=== PATIENT | female | born 1995 | race Caucasian/White ===

== ENCOUNTER 2019-10-23 01:44 | Emergency (ER) | payer BC ==
--- NOTE | 2019-10-23 02:41 | EDM.PDOC ---
ED HPI GENERAL MEDICAL PROBLEM - General Chief Complaint: DIRECTOR PUBLIC Problem Stated Complaint: 10 WKS AND BLEEDING & CRAMPING Time Seen by Provider: 10/23/19 02:10 Source of Information: Reports: Patient, Family (Mother) History Limitations: Reports: No Limitations - History of Present Illness INITIAL COMMENTS - FREE TEXT/NARRATIVE: Mrs. Renae is a very pleasant 24-year-old woman with no chronic medical problems, who now presents the ED stating that she is approximately 10 weeks with her first , LMP 08/13/2019. She states that she developed lower abdominal cramps 2 days ago, 10/21/2019, then developed vaginal bleeding yesterday afternoon, 10/22/2019. She states that she is soaking through 1 pad about every 2 hours. No urinary symptoms. Here in the ED, the patient is found to be slightly tachycardic at 101 bpm, otherwise, she is hemodynamically stable, afebrile, saturating 100% on room air. Other than the lower abdominal cramps and vaginal bleeding, the patient denies recent fever, chills, sore throat, ear pain, nasal or sinus congestion, cough, dyspnea, chest pain, palpitations, nausea, vomiting, constipation, diarrhea, abdominal pain, urinary symptoms, recent weight gain or weight loss, recent bloody bowel movements or black bowel movements, recent joint aches, headaches, or rashes. The patient has not yet received any obstetric care during this , however, she is taking an [id number] vitamin. She has an appointment to see Dr. Sabillon this coming 10/28/2019. The patient does not have a PCP. She has received her previous gynecologic care from June Barry. Lower Abdominal Pain Score (Numeric/FACES): 7 - Related Data Allergies Allergy/AdvReac Type Severity Reaction Status Date / Time Cephalosporins Allergy Severe Anaphylactic Verified 10/23/19 02:03 Shock Home Meds: Home Meds . [No Known Home Meds] 10/23/19 [History] Past Medical History HEENT History: Reports: Impaired Vision : 1 Para: 0 Musculoskeletal History: Reports: Fracture (left wrist) - Past Surgical History HEENT Surgical History: Reports: Oral Surgery (wisdom teeth extraction) Musculoskeletal Surgical History: Reports: ORIF (left wrist) Dermatological Surgical History: Reports: Other (See Below) (Left islam cyst excised as an infant) Social & Family History - Tobacco Use Smoking Status *Q: Never Smoker - Caffeine Use Caffeine Use: Reports: Tea - Alcohol Use Alcohol Use History: Yes Alcohol Use Frequency: Socially (not during this ) - Recreational Drug Use Recreational Drug Use: No - Living Situation & Occupation Living situation: Reports: , with Spouse 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 ED EXAM - Physical Exam Exam: See Below Exam Limited By: No Limitations General Appearance: Alert, WD/WN, No Apparent Distress Eye Exam: Bilateral Eye: EOMI, Normal Inspection Ears: Normal External Exam, Hearing Grossly Normal Nose: Normal Inspection Throat/Mouth: Normal Inspection, Normal Lips, Normal Voice, No Airway Compromise Head: Atraumatic, Normocephalic Neck: Normal Inspection, Full Range of Motion Respiratory/Chest: No Respiratory Distress, Lungs Clear, Normal Breath Sounds, No Accessory Muscle Use Cardiovascular: Normal Peripheral Pulses, Regular Rate, Rhythm, No Edema, No Gallop, No JVD, No Murmur, No Rub GI/Abdominal Exam: Normal Bowel Sounds, Soft, Non-Tender (including suprapubically), No Organomegaly, No Distention, No Abnormal Bruit, No Mass Rectal Exam: Deferred (Female) Exam: Other (Large amount of blood and clots within the vagina. While clearing, a small sac-like piece of tissue was recovered. Nulliparous cervical os closed with blood clot emanating.) Back Exam: Normal Inspection, Full Range of Motion, NT Extremities: Normal Inspection, Normal Range of Motion, No Pedal Edema, Normal Capillary Refill Neurological: Alert, Oriented, Normal Cognition, No Motor/Sensory Deficits Psychiatric: Normal Affect Skin Exam: Warm, Dry, Intact, Normal Color, No Rash Course - Vital Signs Last Recorded V/S: Last Vital Signs Temp 37.4 C 10/23/19 01:59 Pulse 101 H 10/23/19 01:59 Resp 18 10/23/19 01:59 BP 127/74 10/23/19 01:59 Pulse Ox 100 10/23/19 01:59 Orthostatic Blood Pressure [ 106/65 Standing] Orthostatic Blood Pressure [ 108/65 Supine] - Orders/Labs/Meds Orders: Active Orders hr Category Date Time Status Orthostatic Vital Signs [RC] STAT Care 10/23/19 02:51 Active Orthostatic Vital Signs [RC] STAT Care 10/23/19 05:18 Active OB Transvaginal [US] Stat Exams 10/23/19 02:28 Taken PATIENT RETYPE [BBK] Routine Lab 10/23/19 03:36 Ordered Labs: Laboratory Tests 10/23/19 10/23/19 10/23/19 Range/Units 03:00 03:00 03:00 WBC 12.38 H (3.98-10.04) K/mm3 RBC 4.51 (3.98-5.22) M/mm3 Hgb 14.2 (11.2-15.7) gm/dl Hct 41.6 (34.1-44.9) % MCV 92.2 (79.4-94.8) fl MCH 31.5 (25.6-32.2) pg MCHC 34.1 (32.2-35.5) g/dl RDW Std Deviation 39.7 (36.4-46.3) fL Plt Count 207 (182-369) K/mm3 MPV 10.4 (9.4-12.3) fl Neut % (Auto) 81.9 H (34.0-71.1) % Lymph % (Auto) 10.6 L (19.3-51.7) % Hays % (Auto) 6.9 (4.7-12.5) % Eos % (Auto) 0.2 L (0.7-5.8) Baso % (Auto) 0.2 (0.1-1.2) % Neut # (Auto) 10.15 H (1.56-6.13) K/mm3 Lymph # (Auto) 1.31 (1.18-3.74) K/mm3 Hays # (Auto) 0.85 H (0.24-0.36) K/mm3 Eos # (Auto) 0.02 L (0.04-0.36) K/mm3 Baso # (Auto) 0.02 (0.01-0.08) K/mm3 Manual Slide Review Abnormal smear HCG, Quant 92480.0 mIU/mL Blood Type O POSITIVE Meds: Medications Discontinued Medications Generic Name Dose Route Start Last Admin Trade Name Freq PRN Reason Stop Dose Admin Lactated Ringer's 1,000 mls @ 999 mls/hr 10/23/19 02:51 10/23/19 03:36 Ringers, Lactated IV 10/23/19 03:51 999 mls/hr .BOLUS ONE Administration Lactated Ringer's 1,000 mls @ 999 mls/hr 10/23/19 04:42 10/23/19 04:57 Ringers, Lactated IV 10/23/19 05:42 999 mls/hr .BOLUS ONE Administration Misoprostol 1,000 mcg 10/23/19 04:36 10/23/19 04:47 Cytotec PO 10/23/19 04:37 Not Given ONETIME STA Misoprostol 1,000 mcg 10/23/19 04:42 10/23/19 04:57 Cytotec PO 10/23/19 04:43 1,000 mcg ONETIME STA Administration - Re-Assessments/Exams Free Text/Narrative Re-Assessment/Exam: 10/23/19 02:30 As above, the patient is 10 weeks 1 day by dates, now with 2 days of lower abdominal cramps and vaginal bleeding since yesterday afternoon. I have ordered a work-up including a CBC, quantitative hCG, ABO/Rh, and a transvaginal ultrasound. 10/23/19 02:47 On pelvic examination, I recovered a large amount of blood and clots from the vagina, along with a small sac-like piece of tissue. The patient's nulliparous cervical os is closed, however, blood clot was seen emanating from the os. 10/23/19 02:51 The patient is orthostatic. I have therefore ordered a 1 L bolus of LR. 10/23/19 03:35 Notified by the industrial waste treatment technician that she did not see a gestational sac. 10/23/19 04:05 Transvaginal ultrasound is read by Chito as: No intrauterine identified. Please correlate with the patient's clinical history, as if the patient has a positive test, ectopic cannot be excluded. Blood products in the endometrial cavity of the uterus. Ovaries are normal bilaterally. 10/23/19 04:39 Test results discussed with the patient and her mother. The patient states that her vaginal bleeding has decreased somewhat, but is still relatively vigorous. Case discussed with Dr. Santamaria at 04:33. Since she has passed the gestational sac, and her cervix is closed, her bleeding will likely diminish soon, however, he recommended that I give the patient 1000 micrograms of Cytotec orally. If she is still having significant bleeding closer to 7 AM, I will call him back. 10/23/19 04:41 The liter of LR has finished infusing. Repeat orthostatics are still positive. I will order a second liter of IV fluid. 10/23/19 04:[address] Santamaria discussed with the patient and her mother. The patient stated that she just returned from the bathroom, and that her bleeding is already noticeably much improved. She is about to receive the second liter of IV fluid. We will recheck orthostatics once it has finished infusing. 10/23/19 06:04 Repeat orthostatics are negative, and the patient states that she is barely bleeding at all now. I will discharge her home. Departure - Departure Time of Disposition: 06:04 Disposition: Home, Self-Care 01 Condition: Good Clinical Impression: Spontaneous - Discharge Information *PRESCRIPTION DRUG MONITORING PROGRAM REVIEWED*: Not Applicable *COPY OF PRESCRIPTION DRUG MONITORING REPORT IN PATIENT LIDIA: Not Applicable Referrals: June Barry NP [Primary Care Provider] - Dante Sabillon MD [Physician] - Forms: ED Department Discharge Additional Instructions: You were seen in the emergency room nominal cramps since Monday, and vaginal bleeding since Monday afternoon. Work-up in the ER included positional blood pressure checks, blood work, and a transvaginal ultrasound. Your heart rate radhames excessively between lying and standing, indicating intravascular depletion. You were given 2 L of IV fluid, and your blood pressure and heart rate stabilized. The ultrasound showed no intrauterine , and on pelvic examination, tissue consistent with a gestational sac was recovered. Based on your history, physical exam, and ER tests, it appears that you have suffered a miscarriage. Your case was discussed with the DIRECTOR PUBLIC Dr. Javad Santamaria, who recommended that we give you Cytotec to help stop your vaginal bleeding. We recommend that you follow-up with June Barry NP, at the next available appointment. If any other problems, please do not hesitate to return to the ER. Sepsis Event Note (ED) - Evaluation Sepsis Screening Result: No Definite Risk - Focused Exam Vital Signs: Vital Signs Temp Pulse Resp BP Pulse Ox 10/23/19 01:59 37.4 C 101 H 18 127/74 100 - My Orders Last 24 Hours: My Active Orders 10/23/19 02:28 OB Transvaginal [US] Stat 10/23/19 02:51 Orthostatic Vital Signs [RC] STAT 10/23/19 03:36 PATIENT RETYPE [BBK] Routine 10/23/19 05:18 Orthostatic Vital Signs [RC] STAT - Assessment/Plan Last 24 Hours: My Active Orders 10/23/19 02:28 OB Transvaginal [US] Stat 10/23/19 02:51 Orthostatic Vital Signs [RC] STAT 10/23/19 03:36 PATIENT RETYPE [BBK] Routine 10/23/19 05:18 Orthostatic Vital Signs [RC] STAT
[2019-10-23] MEDS ORDERED: Lactated Ringers 1,000 ML IV ONE ×2 (02:51→04:42)
[2019-10-23] MEDS ORDERED: Misoprostol 100 MCG Tab PO STA (04:36)
[2019-10-23] MEDS ORDERED: Misoprostol 200 MCG Tab PO STA (04:42)
--- NOTE | 2019-10-23 06:19 | US ---
First trimester obstetrical ultrasound: Multiple real-time images were obtained transvaginally. Comparison: No previous study. No intrauterine gestational sac is seen. Echogenic material is seen within the endometrial cavity most likely representing blood clot. Small amount of acute blood is also noted. Ovaries appear within normal limits. No discrete adnexal abnormalities are seen. Impression: 1. Probable blood clot within the endometrial cavity as well as a small amount of acute blood. No intrauterine gestational sac is seen. 2. No adnexal abnormalities or free fluid is seen. Note: If patient has positive test, findings can represent change from ongoing miscarriage or less likely nonvisualized ectopic . Diagnostic code #3 Agree with preliminary report issued by [facility] ([facility] preliminary report dictated on 10/23/19, 5:03 AM Central Daylight Time) Study was dictated in MDT
== END 2019-10-23 06:15 | disposition home or self-care (01) ==
LOC: JD.ED 01:44
DX: O03.9 Complete or unspecified spontaneous abortion without complication (principal); Z88.1 Allergy status to other antibiotic agents
CPT/HCPCS: 36415; 76817; 84702; 85025; 86900; 86901; 96360; 96361; 99284; A9270; J7120

== ENCOUNTER 2021-07-20 09:23 | Inpatient (IN) | payer BC ==
[2021-07-20] MEDS ORDERED: Sodium Chloride 0.9% 10 ML Syringe FLUSH PRN (10:00)
[2021-07-20] MEDS ORDERED: Oxytocin/Lactated Ringers 10 UNIT/1,000 ML BAG IV SCH ×2 (10:00)
[2021-07-20] MEDS ORDERED: Nalbuphine 10 MG/1 ML Vial IVPUSH PRN (10:00)
[2021-07-20] MEDS ORDERED: Ondansetron 4 MG/2 ML SDV IVPUSH PRN (10:00)
[2021-07-20] MEDS ORDERED: Lidocaine 1% 50 ML MDV INJECT ONE (10:00)
[2021-07-20] MEDS: Clindamycin Phosphate in D5W 900 MG in Premix Bag 1 BAG IV SCH ×4 (10:29→18:28)
[2021-07-20] MEDS: Lactated Ringers 1,000 ML IV SCH ×3 (10:29→16:51)
[2021-07-20] MEDS ORDERED: fentaNYL 100 MCG/2 ML SDV EPIDUR PRN (16:05)
[2021-07-20] MEDS ORDERED: ePHEDrine 50 MG/ML SDV IVPUSH PRN (16:05)
[2021-07-20] MEDS ORDERED: diphenhydrAMINE 50 MG/ML SDV IVPUSH PRN (16:05)
[2021-07-20] MEDS: Bupivacaine/fentaNYL/NS 100 ML Bag EPIDUR PRN (16:20)
[2021-07-20] MEDS ORDERED: Sodium Chloride 0.9% 10 ML Syringe FLUSH SCH (21:00)
[2021-07-21] MEDS ORDERED: Bupivacaine 0.25% 10 ML SDV ONE
[2021-07-21] MEDS: Bupivacaine/fentaNYL/NS 100 ML Bag EPIDUR PRN (00:38)
[2021-07-21] MEDS ORDERED: Acetaminophen 325 MG Tab PO PRN (03:16)
[2021-07-21] MEDS ORDERED: Witch Hazel Medicated Pads 40/Jar TOP PRN (03:16)
[2021-07-21] MEDS ORDERED: Benzocaine/Menthol 20%-0.5% Spray 78 GM Cannister TOP PRN (03:16)
[2021-07-21] MEDS: Ibuprofen 600 MG Tab PO PRN ×3 (03:51→20:38)
[2021-07-21] MEDS: Docusate Sodium 100 MG Cap PO PRN ×2 (03:51→20:40)
[2021-07-22] MEDS: Clindamycin Phosphate in D5W 900 MG in Premix Bag 1 BAG IV SCH ×2 (01:58)
[2021-07-22] MEDS: Docusate Sodium 100 MG Cap PO PRN (08:10)
[2021-07-22] MEDS: Ibuprofen 600 MG Tab PO PRN (08:10)
== END 2021-07-22 17:29 | disposition home or self-care (01) | DRG 560 ==
LOC: JD.OBCHECK 09:23 → JD.OB 09:27 → JD.OBCHECK 10:00 → JD.OB 16:19 → OBSVTOIN 07-21 02:12 → JD.OB 07-21 02:13
PROVIDERS: ADMIT Obstetrics & Gynecology; ATTEND Obstetrics & Gynecology
PROC: 10E0XZZ Delivery of Products of Conception, External Approach (ICD-10-PCS; principal; 2021-07-21)
PROC: 10907ZC Drainage of Amniotic Fluid, Therapeutic from Products of Conception, Via Natural or Artificial Opening (ICD-10-PCS; 2021-07-21)
PROC: 0KQM0ZZ Repair Perineum Muscle, Open Approach (ICD-10-PCS; 2021-07-21)
PROC: 3E0R3BZ Introduction of Anesthetic Agent into Spinal Canal, Percutaneous Approach (ICD-10-PCS; 2021-07-21)
DX: O48.0 Post-term pregnancy (principal); Z3A.40 40 weeks gestation of pregnancy; Z37.0 Single live birth; O77.0 Labor and delivery complicated by meconium in amniotic fluid; O70.1 Second degree perineal laceration during delivery; Z88.1 Allergy status to other antibiotic agents; O99.824 Streptococcus B carrier state complicating childbirth; Z20.822 Contact with and (suspected) exposure to COVID-19
CPT/HCPCS: 01967; 36415; 51701; 51702; 51798; 59025; 59409; 85025; 86592; 86850; 86900; 86901; A9270-GY; J2590; J3010; J3490; J7120; U0002

== ENCOUNTER 2024-06-21 06:41 | Inpatient (IN) | payer BC ==
[~2024-06-21 06:41] MED LIST: Bupivacaine 0.25% 10 ML SDV ONE
[2024-06-21] MEDS ORDERED: Calcium Carbonate 500 MG Tab.Chew PO PRN (07:16)
[2024-06-21] MEDS ORDERED: Ondansetron 4 MG/2 ML SDV IVPUSH PRN (07:16)
[2024-06-21] MEDS ORDERED: Sodium Chloride 0.9% 10 ML Syringe FLUSH PRN (07:16)
[2024-06-21] MEDS ORDERED: Lidocaine 1% 50 ML MDV INJECT PRN (07:16)
[2024-06-21] MEDS ORDERED: Nalbuphine 10 MG/1 ML Vial IVPUSH PRN (07:16)
[2024-06-21] MEDS ORDERED: Oxytocin/0.9 % Sodium Chloride 30 UNIT/500 ML BAG IV SCH (07:30)
[2024-06-21 07:46] LABS: BASOPHILS PERCENT AUTO 0.2 % (0.0-1.0); EOSINOPHILS PERCENT AUTO 0.1 % (0.0-6.0); HEMATOCRIT 37.6 % (37.0-47.0); HEMOGLOBIN 12.9 gm/dl (12.0-16.0); IMMATURE GRAN ABSOLUTE AUTO 0.03 K/mm3 (0.00-0.05); IMMATURE GRAN PERCENT AUTO 0.3 % (0.0-0.4); LYMPHOCYTES ABSOLUTE AUTO 1.7 K/mm3 (1.0-4.8); LYMPHOCYTES PERCENT AUTO 15.8 % (24.0-44.0); MEAN CORPUSCULAR HEMOGLOBIN 31.9 pg (28.0-32.0); MEAN CORPUSCULAR HGB CONC 34.3 g/dl (32.0-36.0); MEAN CORPUSCULAR VOLUME 93.1 fl (83.0-99.0); MEAN PLATELET VOLUME 10.6 fl (9.4-12.3); MONOCYTES ABSOLUTE AUTO 0.6 K/mm3 (0.0-0.8); MONOCYTES PERCENT AUTO 5.4 % (0.0-8.0); NEUTROPHILS ABSOLUTE AUTO 8.3 K/mm3 (1.8-7.7); NEUTROPHILS PERCENT AUTO 78.2 % (41.0-71.0); PLATELET COUNT,PLT 157 K/mm3 (150-400); RED BLOOD CELL COUNT 4.04 M/mm3 (4.10-5.30); WHITE BLOOD CELL COUNT,WBC 10.65 K/mm3 (3.9-11.3)
[2024-06-21] MEDS: Lactated Ringers 1,000 ML IV SCH (10:08)
[2024-06-21] MEDS: Oxytocin/0.9 % Sodium Chloride 30 UNIT/500 ML BAG IV SCH (10:11)
[2024-06-21] MEDS ORDERED: ePHEDrine 50 MG/ML SDV IVPUSH PRN (12:06)
[2024-06-21] MEDS ORDERED: diphenhydrAMINE 50 MG/ML SDV IVPUSH PRN (12:06)
[2024-06-21] MEDS: fentaNYL 100 MCG/2 ML SDV EPIDUR PRN (12:11)
[2024-06-21] MEDS: Bupivacaine/fentaNYL/NS 100 ML Bag EPIDUR PRN (12:12)
[2024-06-21] MEDS: Benzocaine/Menthol 20%-0.5% Spray 78 GM Cannister TOP PRN (15:31)
[2024-06-21] MEDS: Witch Hazel Medicated Pads 40/Jar TOP PRN (15:31)
[2024-06-21] MEDS: Docusate Sodium 100 MG Cap PO PRN (16:06)
[2024-06-21] MEDS: Acetaminophen 325 MG Tab PO PRN (16:07)
[2024-06-21] MEDS: Ibuprofen 600 MG Tab PO SCH (16:07)
[2024-06-21] MEDS: Sodium Chloride 0.9% 10 ML Syringe FLUSH SCH (19:52)
== END 2024-06-22 17:35 | disposition home or self-care (01) | DRG 560 ==
LOC: JD.OBCHECK 06:41 → JD.OB 06:41 → INTOOBSV 07:16 → JD.OB 07:16 → JD.OBCHECK 07:16 → OBSVTOIN 14:06 → JD.OB 14:07
PROVIDERS: ADMIT Family Medicine; ATTEND Family Medicine
PROC: 10E0XZZ Delivery of Products of Conception, External Approach (ICD-10-PCS; principal; 2024-06-21)
PROC: 0KQM0ZZ Repair Perineum Muscle, Open Approach (ICD-10-PCS; principal; 2024-06-21)
PROC: 10907ZC Drainage of Amniotic Fluid, Therapeutic from Products of Conception, Via Natural or Artificial Opening (ICD-10-PCS; principal; 2024-06-21)
PROC: 3E0R3BZ Introduction of Anesthetic Agent into Spinal Canal, Percutaneous Approach (ICD-10-PCS; principal; 2024-06-21)
DX: O99.62 Diseases of the digestive system complicating childbirth (principal); O70.1 Second degree perineal laceration during delivery; J30.9 Allergic rhinitis, unspecified; Z3A.39 39 weeks gestation of pregnancy; Z37.0 Single live birth; Z88.8 Allergy status to other drugs, medicaments and biological substances; Z98.890 Other specified postprocedural states; Z79.899 Other long term (current) drug therapy
CPT/HCPCS: 36415; 51701; 59025; 59409; 85025; 86592; 86850; 86900; 86901; A9270-GY; C1758; J0665; J3010; J3490; J7120; J7999